=== PATIENT | male | born 1955 | race African-American/Black ===

== ENCOUNTER 2017-06-11 10:14 | Inpatient (IN) | payer OTHER ==
[2017-06-11 11:12] VITALS: BMI 30.8
--- NOTE | 2017-06-11 11:35 | HP ---
CIWA Score - CIWA Score Nausea/Vomitin-Mild Nausea/No Vomiting Muscle Tremors: 4-Moderate,w/Arms Extend Anxiety: 4-Mod. Anxious/Guarded Agitation: 0-Normal Activity Paroxysmal Sweats: 1-Minimal Palms Moist Orientation: 0-Oriented Tacttile Disturbances: 1-Very Mild Itch/Numbness Auditory Disturbances: 1-Very Mild Visual Disturbances: 0-None Headache: 2-Mild CIWA-Ar Total Score: 14 Admission ROS BHS - HPI Chief Complaint: I want to get myself together, I need help, I can't stop on my own Allergies/Adverse Reactions: Allergies Allergy/AdvReac Type Severity Reaction Status Date / Time penicillin G Allergy Unknown UNKNOWN Verified 06/11/17 13:21 History of Present Illness: 61 yo gentleman here for detox from alcohol - last here in 2016, relapsed a few months ago - [place] been [place], [place] [address] [place] [address] No seizures. Although urine tox + opiates, benzo and barbiturates - patient denies any use of these and states probably mixed with crack. Exam Limitations: Clinical Condition - Ebola screening Have you traveled outside of the country in the last 21 days: No (N) Have you had contact with anyone from an Ebola affected area: No Have you been sick,other than usual withdrawal symptoms: No Do you have a fever: No - Review of Systems Constitutional: Loss of Appetite, Changes in sleep, Weakness EENT: reports: Blurred Vision Respiratory: reports: No Symptoms reported Cardiac: reports: No Symptoms Reported GI: reports: Nausea : reports: Frequency Musculoskeletal: reports: Other (chronic left leg pain) Neuro: reports: Headache, Unsteady Gait (left leg pain - uses cane) Endocrine: reports: No Symptoms Reported Hematology: reports: No Symptoms Reported Psychiatric: reports: Judgement Intact, Mood/Affect Appropiate, Orientated x3, Anxious Other Systems: Reviewed and Negative Patient History - Patient Medical History Hx Anemia: No Hx Asthma: No Hx Chronic Obstructive Pulmonary Disease (COPD): No Hx Cancer: No Hx Cardiac Disorders: No Hx Congestive Heart Failure: No Hx Hypertension: No Hx Hypercholesterolemia: No Hx Pacemaker: No HX Cerebrovascular Accident: No Hx Seizures: No Hx Dementia: No Hx Diabetes: Yes Hx Gastrointestinal Disorders: Yes (history of gastric ulcer) Hx Liver Disease: No Hx Genitourinary Disorders: No Hx Sexually Transmitted Disorders: No Hx Renal Disease (ESRD): No Hx Thyroid Disease: No Hx Human Immunodeficiency Virus (HIV): No (negative) Hx Hepatitis C: Yes (patient states he is not sure if he has it) Hx Depression: Yes Hx Suicide Attempt: No (denies) Hx Bipolar Disorder: Yes (history of hospitalization - last time a year ago, out of meds ) Hx Schizophrenia: Yes (out of meds about a month - 'I've been on the streets') Other Medical History: nerve damage left leg ? told maybe from football injury - Patient Surgical History Past Surgical History: Yes Hx Neurologic Surgery: No Hx Cataract Extraction: No Hx Cardiac Surgery: No Hx Lung Surgery: No Hx Breast Surgery: No Hx Breast Biopsy: No Hx Abdominal Surgery: Yes (1984 gastric bleeding ulcer) Hx Appendectomy: No Hx Cholecystectomy: No Hx Genitourinary Surgery: No Hx Section: No Hx Orthopedic Surgery: No Anesthesia Reaction: No - PPD History Previous Implant?: Yes Documented Results: Negative w/proof Implanted On Prior [facility] [place]?: Yes Date: 06/01/15 PPD to be Administered?: Yes - Reproductive History Patient is a Female of Child Bearing Age (11 -55 yrs old): No (male) - Smoking Cessation Smoking history: Current every day smoker Have you smoked in the past 12 months: Yes Aproximately how many cigarettes per day: 7 Hx Chewing Tobacco Use: No Initiated information on smoking cessation: Yes 'Breaking Loose' booklet given: 06/11/17 (give on floor) - Substance & Tx. History Hx Alcohol Use: Yes Hx Substance Use: Yes Substance Use Type: Alcohol, Cocaine Hx Substance Use Treatment: Yes (detox, rehab) - Substances Abused alcohol Frequency: Daily Amount used: 1/2 pint and 3 cans beer 22 oz Age of first use: 17 Date of Last Use: 06/10/17 crack Route: Smoking Frequency: 3-6 times per week Amount used: $100 Age of first use: 34 Date of Last Use: 06/11/17 Family Disease History - Family Disease History Family Disease History: Diabetes: Mother (), Other: Father (, etoh), Mother, Brother (three - one ? unsure why), Sister (three - etoh use ) Admission Physical Exam BHS - Vital Signs Vital Signs: Vital Signs - 24 hr 06/11/17 10:53 Temperature 97.3 F L Pulse Rate 73 Respiratory 20 Rate Blood Pressure 126/87 - Physical General Appearance: Yes: Nourished, Appropriately Dressed, Moderate Distress, Obese HEENTM: Yes: Hearing grossly Normal, Normocephalic, Normal Voice, Pharynx Normal Respiratory: Yes: Normal Breath Sounds, No Respiratory Distress Neck: Yes: No masses,lesions,Nodules Breast: Yes: Breast Exam Deferred Cardiology: Yes: Regular Rhythm, Regular Rate Abdominal: Yes: Flat Genitourinary: Yes: Frequency Back: Yes: Normal Inspection Musculoskeletal: Yes: Other (left leg pain, limp (chronic)) Extremities: Yes: Normal Inspection Neurological: Yes: Fully Oriented, Alert, Normal Mood/Affect, Normal Response Integumentary: Yes: Normal Color, Warm Lymphatic: Yes: Within Normal Limits - Addiitonal Findings: [id number] - Diagnostic (1) Alcohol dependence with uncomplicated withdrawal Current Visit: Yes Status: Acute (2) Crack cocaine use Current Visit: Yes Status: Acute (3) Chronic leg pain Current Visit: Yes Status: Chronic Qualifiers: Laterality: left Qualified Code(s): M79.605 - Pain in left leg (4) Diabetes mellitus type 2, diet-controlled Current Visit: Yes Status: Chronic (5) Nicotine dependence Current Visit: Yes Status: Chronic Qualifiers: Nicotine product type: cigarettes Substance use status: uncomplicated Qualified Code(s): F17.210 - Nicotine dependence, cigarettes, uncomplicated Cleared for Admission [facility] - Detox or Rehab [facility] Level of Care: Medically Managed Detox Regimen/Protocol: Librium [facility] Breath Alcohol Content Breath Alcohol Content: 0 Urine Drug Screen - Results Drug Screen Negative: No Urine Drug Screen Results: MINNIE-Cocaine, OPI-Opiates, BAR-Barbiturates, BZO- Benzodiazepines, OXY-Oxycodone
[2017-06-11] MEDS ORDERED: hydrOXYzine PAMOATE 25 MG CAPSULE (FP) PO PRN (13:13)
[2017-06-11] MEDS ORDERED: MAGNESIUM HYDROX 2400MG/30ML ORAL SUSPENSION 30 ML CUP PO PRN (13:13)
[2017-06-11] MEDS ORDERED: MAGNESIUM CITRATE 300 ML BOTTLE PO PRN (13:13)
[2017-06-11] MEDS ORDERED: IBUPROFEN 400 MG TABLET (FP) PO PRN (13:13)
[2017-06-11] MEDS ORDERED: MAG HYDROX/AL HYDROX/SIMETH 30 ML UNIT-DOSE CUP PO PRN (13:13)
[2017-06-11] MEDS ORDERED: MENTHOL/PHENOL 1 EACH UD MM PRN (13:13)
[2017-06-11] MEDS ORDERED: LOPERAMIDE HCL 2 MG CAPSULE PO PRN (13:13)
[2017-06-11] MEDS ORDERED: ACETAMINOPHEN 325 MG TABLET (FP) PO PRN (13:13)
[2017-06-11] MEDS ORDERED: guaiFENesin/D-METHORPHAN HB 10 ML UNIT-DOSE CUPS PO PRN (13:13)
[2017-06-11] MEDS ORDERED: P-EPHED 60MG/TRIPROLIDI 2.5MG TABLET PO PRN (13:13)
[2017-06-11] MEDS ORDERED: NICOTINE POLACRILEX 2 MG GUM BUC PRN (13:13)
[2017-06-11] MEDS ORDERED: chlordiazePOXIDE HCL 25 MG CAPSULE PO PRN (13:22)
[2017-06-11] MEDS ORDERED: chlordiazePOXIDE HCL 25 MG CAPSULE PO ONE (13:30)
[2017-06-11] MEDS: NICOTINE 14 MG/24 HOURS TOPICAL PATCH TD SCH (15:48)
[2017-06-11] MEDS: chlordiazePOXIDE HCL 25 MG CAPSULE PO SCH ×2 (17:28→22:22)
[2017-06-11 19:18] LABS: URINE APPEARANCE TURBID; URINE BILIRUBIN NEGATIVE (NEGATIVE); URINE BLOOD NEGATIVE (NEGATIVE); URINE COLOR AMBER; URINE GLUCOSE (UA) NEGATIVE (NEGATIVE); URINE KETONE TRACE (NEGATIVE); URINE LEUK ESTERASE NEGATIVE (NEGATIVE); URINE NITRITE NEGATIVE (NEGATIVE); URINE PROTEIN NEGATIVE (NEGATIVE)
[2017-06-11] MEDS: THIAMINE HCL 100 MG TABLET (FP) PO SCH (22:22)
[2017-06-12] MEDS: chlordiazePOXIDE HCL 25 MG CAPSULE PO SCH ×4 (05:15→22:09)
[2017-06-12] MEDS: metFORMIN HCL 500 MG TABLET (FP) PO SCH (07:00)
--- NOTE | 2017-06-12 10:12 | CONSULT ---
Psychiatric Findings - Problem List ([place] 1, 2,3) (1) Schizoaffective disorder Current Visit: No Status: Chronic
[2017-06-12 10:14] LABS: HEMATOCRIT 38.3 % (35.4-49); HEMOGLOBIN 12.7 GM/dL (11.7-16.9); MCH 27.4 pg (25.7-33.7); MCHC 33.1 g/dl (32.0-35.9); MEAN CELL VOLUME 82.8 fl (80-96); MEAN PLT VOLUME 8.5 fl (7.5-11.1); PLATELET COUNT 211 K/MM3 (134-434); RBC 4.62 M/mm3 (4.00-5.60); RDW 15.9 % (11.9-15.9); WHITE BLOOD COUNT 5.4 K/mm3 (4.0-10.0)
[2017-06-12 10:18] LABS: CHLORIDE 107 mmol/L (98-107); SODIUM 141 mmol/L (136-145)
[2017-06-12 10:32] LABS: ALBUMIN 3.3 g/dl (3.4-5.0); ALK PHOS 64 U/L (45-117); ANION GAP 5 (8-16); BILIRUBIN,TOTAL 0.3 mg/dL (0.2-1.0); BLOOD UREA NITROGEN 9 mg/dL (7-18); CALCIUM 8.1 mg/dL (8.5-10.1); CO2 29 mmol/L (21-32); GLUCOSE,RANDOM 96 mg/dL (74-106); SGOT/AST 24 U/L (15-37); SGPT/ALT 16 U/L (12-78); TOT PROT 6.2 g/dl (6.4-8.2)
[2017-06-12] MEDS: PRENATAL VITAMINS W/ FOLIC ACID TABLET (FP) PO SCH (10:32)
[2017-06-12] MEDS: NICOTINE 14 MG/24 HOURS TOPICAL PATCH TD SCH (10:33)
--- NOTE | 2017-06-12 12:11 | PN ---
[facility] Progress Note Note: Patient was approached twice at bedside for interview. The first time, he told automobile service writer that he needed some rest and a verbal agreement to talk after lunch was reached. He was approached a second time after he ate his lunch and he wanted automobile service writer to talk to him at bedside. Since his roommate was in bed sleeping, he was asked to come to the office instead. He became irritable, hostile and refused to be interviewed saying:"I don't want to talk to you"
--- NOTE | 2017-06-12 12:39 | PN ---
[facility] CIWA - CIWA Score Nausea/Vomitin-Mild Nausea/No Vomiting Muscle Tremors: 4-Moderate,w/Arms Extend Anxiety: 4-Mod. Anxious/Guarded Agitation: 3 Paroxysmal Sweats: 1-Minimal Palms Moist Orientation: 0-Oriented Tacttile Disturbances: 0-None Auditory Disturbances: 0-None Visual Disturbances: 0-None Headache: 0-None Present CIWA-Ar Total Score: 13 BHS Progress Note (SOAP) Subjective: gi upset sweat tremor restlessness irritable anxiety Objective: 06/12/17 12:38 Vital Signs Temperature 97.9 F 06/12/17 10:00 Pulse Rate 76 06/12/17 10:00 Respiratory Rate 20 06/12/17 10:00 Blood Pressure 113/68 06/12/17 10:00 O2 Sat by Pulse Oximetry (%) Laboratory Last Values WBC 5.4 K/mm3 (4.0-10.0) 06/12/17 07:20 RBC 4.62 M/mm3 (4.00-5.60) 06/12/17 07:20 Hgb 12.7 GM/dL (11.7-16.9) 06/12/17 07:20 Hct 38.3 % (35.4-49) 06/12/17 07:20 MCV 82.8 fl (80-96) 06/12/17 07:20 MCH 27.4 pg (25.7-33.7) 06/12/17 07:20 MCHC 33.1 g/dl (32.0-35.9) 06/12/17 07:20 RDW 15.9 % (11.9-15.9) 06/12/17 07:20 Plt Count 211 K/MM3 (134-434) 06/12/17 07:20 MPV 8.5 fl (7.5-11.1) 06/12/17 07:20 Sodium 141 mmol/L (136-145) 06/12/17 07:20 Potassium 4.0 mmol/L (3.5-5.1) 06/12/17 07:20 Chloride 107 mmol/L (98-107) 06/12/17 07:20 Carbon Dioxide 29 mmol/L (21-32) 06/12/17 07:20 Anion Gap 5 (8-16) L 06/12/17 07:20 BUN 9 mg/dL (7-18) D 06/12/17 07:20 Creatinine 1.0 mg/dL (0.7-1.3) D 06/12/17 07:20 Creat Clearance w eGFR > 60 (>60) 06/12/17 07:20 POC Glucometer 102 UNITS (80-120) 06/12/17 05:14 Random Glucose 96 mg/dL (74-106) 06/12/17 07:20 Calcium 8.1 mg/dL (8.5-10.1) L 06/12/17 07:20 Total Bilirubin 0.3 mg/dL (0.2-1.0) D 06/12/17 07:20 AST 24 U/L (15-37) 06/12/17 07:20 ALT 16 U/L (12-78) D 06/12/17 07:20 Alkaline Phosphatase 64 U/L (45-117) 06/12/17 07:20 Total Protein 6.2 g/dl (6.4-8.2) L 06/12/17 07:20 Albumin 3.3 g/dl (3.4-5.0) L 06/12/17 07:20 Urine Color Renae 06/11/17 15:43 Urine Appearance Turbid 06/11/17 15:43 Urine pH 5.0 (5.0-8.0) 06/11/17 15:43 Ur Specific [place] 1.026 (1.001-1.035) 06/11/17 15:43 Urine Protein Negative (NEGATIVE) 06/11/17 15:43 Urine Glucose (UA) Negative (NEGATIVE) 06/11/17 15:43 Urine Ketones Trace (NEGATIVE) H 06/11/17 15:43 Urine Blood Negative (NEGATIVE) 06/11/17 15:43 Urine Nitrite Negative (NEGATIVE) 06/11/17 15:43 Urine Bilirubin Negative (NEGATIVE) 06/11/17 15:43 Urine Urobilinogen 2.0 mg/dL (0.2-1.0) 06/11/17 15:43 Ur Leukocyte Esterase Negative (NEGATIVE) 06/11/17 15:43 RPR Titer Nonreactive (NONREACTIVE) 06/12/17 07:20 HIV 1&2 Antibody Screen Negative 06/12/17 07:20 HIV P24 Antigen Negative 06/12/17 07:20 lab noted Assessment: 06/12/17 12:39 withdrawal sx Plan: continue detox
--- NOTE | 2017-06-12 20:36 | EKG ---
Test Reason : Blood Pressure : / mmHG Vent. Rate : 073 BPM Atrial Rate : 073 BPM P-R Int : 152 ms QRS Dur : 110 ms QT Int : 400 ms P-R-T Axes : 067 -26 042 degrees QTc Int : 440 ms NORMAL SINUS RHYTHM NORMAL ECG NO PREVIOUS ECGS AVAILABLE Confirmed by NICOLAS KUO MD ([id number]) on 06/12/2017 8:35:54 PM Referred By: Confirmed By:NICOLAS KUO MD
[2017-06-12] MEDS: THIAMINE HCL 100 MG TABLET (FP) PO SCH (22:09)
[2017-06-13] MEDS: chlordiazePOXIDE HCL 25 MG CAPSULE PO SCH ×2 (05:14→10:21)
[2017-06-13] MEDS: metFORMIN HCL 500 MG TABLET (FP) PO SCH (07:44)
[2017-06-13] MEDS: PRENATAL VITAMINS W/ FOLIC ACID TABLET (FP) PO SCH (10:21)
[2017-06-13] MEDS: NICOTINE 14 MG/24 HOURS TOPICAL PATCH TD SCH (10:21)
--- NOTE | 2017-06-13 10:59 | PN ---
S CIWA - CIWA Score Nausea/Vomitin Muscle Tremors: 3 Anxiety: 3 Agitation: 2 Paroxysmal Sweats: 1-Minimal Palms Moist Orientation: 0-Oriented Tacttile Disturbances: 1-Very Mild Itch/Numbness Auditory Disturbances: 1-Very Mild Visual Disturbances: 0-None Headache: 2-Mild CIWA-Ar Total Score: 16 BHS Progress Note (SOAP) Subjective: ALERT,IRRITABLE,ANXIOUS,INTERRUPTED SLEEP,TREMOR Objective: 06/13/17 10:57 Vital Signs Temperature 98.1 F 06/13/17 10:28 Pulse Rate 69 06/13/17 10:28 Respiratory Rate 2 L 06/13/17 10:28 Blood Pressure 112/76 06/13/17 10:28 O2 Sat by Pulse Oximetry (%) Laboratory Last Values WBC 5.4 K/mm3 (4.0-10.0) 06/12/17 07:20 RBC 4.62 M/mm3 (4.00-5.60) 06/12/17 07:20 Hgb 12.7 GM/dL (11.7-16.9) 06/12/17 07:20 Hct 38.3 % (35.4-49) 06/12/17 07:20 MCV 82.8 fl (80-96) 06/12/17 07:20 MCH 27.4 pg (25.7-33.7) 06/12/17 07:20 MCHC 33.1 g/dl (32.0-35.9) 06/12/17 07:20 RDW 15.9 % (11.9-15.9) 06/12/17 07:20 Plt Count 211 K/MM3 (134-434) 06/12/17 07:20 MPV 8.5 fl (7.5-11.1) 06/12/17 07:20 Sodium 141 mmol/L (136-145) 06/12/17 07:20 Potassium 4.0 mmol/L (3.5-5.1) 06/12/17 07:20 Chloride 107 mmol/L (98-107) 06/12/17 07:20 Carbon Dioxide 29 mmol/L (21-32) 06/12/17 07:20 Anion Gap 5 (8-16) L 06/12/17 07:20 BUN 9 mg/dL (7-18) D 06/12/17 07:20 Creatinine 1.0 mg/dL (0.7-1.3) D 06/12/17 07:20 Creat Clearance w eGFR > 60 (>60) 06/12/17 07:20 POC Glucometer 100 UNITS (80-120) 06/13/17 06:36 Random Glucose 96 mg/dL (74-106) 06/12/17 07:20 Calcium 8.1 mg/dL (8.5-10.1) L 06/12/17 07:20 Total Bilirubin 0.3 mg/dL (0.2-1.0) D 06/12/17 07:20 AST 24 U/L (15-37) 06/12/17 07:20 ALT 16 U/L (12-78) D 06/12/17 07:20 Alkaline Phosphatase 64 U/L (45-117) 06/12/17 07:20 Total Protein 6.2 g/dl (6.4-8.2) L 06/12/17 07:20 Albumin 3.3 g/dl (3.4-5.0) L 06/12/17 07:20 Urine Color Renae 06/11/17 15:43 Urine Appearance Turbid 06/11/17 15:43 Urine pH 5.0 (5.0-8.0) 06/11/17 15:43 Ur Specific [place] 1.026 (1.001-1.035) 06/11/17 15:43 Urine Protein Negative (NEGATIVE) 06/11/17 15:43 Urine Glucose (UA) Negative (NEGATIVE) 06/11/17 15:43 Urine Ketones Trace (NEGATIVE) H 06/11/17 15:43 Urine Blood Negative (NEGATIVE) 06/11/17 15:43 Urine Nitrite Negative (NEGATIVE) 06/11/17 15:43 Urine Bilirubin Negative (NEGATIVE) 06/11/17 15:43 Urine Urobilinogen 2.0 mg/dL (0.2-1.0) 06/11/17 15:43 Ur Leukocyte Esterase Negative (NEGATIVE) 06/11/17 15:43 RPR Titer Nonreactive (NONREACTIVE) 06/12/17 07:20 HIV 1&2 Antibody Screen Negative 06/12/17 07:20 HIV P24 Antigen Negative 06/12/17 07:20 Assessment: 06/13/17 10:58 WITHDRAWAL SYMPTOM Plan: CONTINUE DETOX
--- NOTE | 2017-06-13 16:08 | CONSULT ---
[facility] Psychiatric Consult - Data Date of interview: 06/13/17 Admission source: [facility] Identifying data: This is 61 years old AA male, ambulating with cane, with history of Schizophrenia, here for detox from alcohol, Crack and Nicotine, reports psychiatric hospitalization history, Substance Abuse History: Urine Drug Screen Results: MINNIE-Cocaine, OPI-Opiates, BAR-Barbiturates, BZO-Benzodiazepines, OXY-Oxycodone. Smoking Cessation. Smoking history: Current every day smoker. Have you smoked in the past 12 months: Yes. Aproximately how many cigarettes per day: 7. Hx Chewing Tobacco Use: No. Initiated information on smoking cessation: Yes. 'Breaking Loose' booklet given: 06/11/17 (give on floor). - Substance & Tx. History. Hx Alcohol Use: Yes. Hx Substance Use: Yes. Substance Use Type: Alcohol, Cocaine. Hx Substance Use Treatment: Yes (detox, rehab). - Substances Abused. alcohol. Frequency: Daily. Amount used: 1/2 pint and 3 cans beer 22 oz. Age of first use: 17. Date of Last Use: 06/10/17. crack. Route: Smoking. Frequency: 3-6 times per week. Amount used: $100. Age of first use: 34. Date of Last Use: 06/11/17 Medical History: DM-2, Lower extremity injury history Psychiatric History: Patient reports history of Schizophrenia with most recent psychiatrtic admission on about more then 10 years ago, reports to be sable on: Haldol 5mg po bid. Cogention 1mg po bid. Zoloft 50mg poqd. Denies suicidal history Physical/Sexual Abuse/Trauma History: Denies Additional Comment: Urine Drug Screen Results: MINNIE-Cocaine, OPI-Opiates, BAR- Barbiturates, BZO-Benzodiazepines, OXY-Oxycodone. Haldol 5mg po bid. Cogention 1mg po bid. Zoloft 50mg poqd Mental Status Exam - Mental Status Exam Alert and Oriented to: Person Cognitive Function: Fair Patient Appearance: Well Groomed Mood: Apprehensive Affect: Mood Congruent Patient Behavior: Cooperative Speech Pattern: Appropriate Voice Loudness: Normal Thought Process: Goal Oriented Thought Disorder: Being Controlled Hallucinations: Denies Suicidal Ideation: Denies Homicidal Ideation: Denies Insight/Judgement: Fair Sleep: Difficulty falling asleep Appetite: Weight gain Muscle strength/Tone: Mild Hypotonicity Gait/Station: Deferred Additional Comments: Haldol 5mg po bid. Cogention 1mg po bid. Zoloft 50mg poqd Psychiatric Findings - Problem List ([place] 1, 2,3) (1) Schizophrenia, residual type Current Visit: Yes Status: Chronic (2) Alcohol dependence with uncomplicated withdrawal Current Visit: Yes Status: Acute (3) Crack cocaine use Current Visit: Yes Status: Acute (4) Nicotine dependence Current Visit: Yes Status: Chronic Qualifiers: Nicotine product type: cigarettes Substance use status: uncomplicated Qualified Code(s): F17.210 - Nicotine dependence, cigarettes, uncomplicated (5) Schizoaffective disorder Current Visit: No Status: Suspected - Initial Treatment Plan Initial Treatment Plan: Haldol 5mg po bid. Cogention 1mg po bid. Zoloft 50mg poqd
[2017-06-13] MEDS: chlordiazePOXIDE 5 MG CAPSULE PO SCH ×2 (17:28→22:26)
[2017-06-13] MEDS: THIAMINE HCL 100 MG TABLET (FP) PO SCH (22:26)
[2017-06-13] MEDS: BENZTROPINE MESYLATE 1 MG TABLET (FP) PO SCH (22:27)
[2017-06-13] MEDS: HALOPERIDOL 5 MG TABLET (FP) PO SCH (22:27)
[2017-06-14] MEDS: chlordiazePOXIDE 5 MG CAPSULE PO SCH ×2 (06:06→10:40)
[2017-06-14] MEDS: metFORMIN HCL 500 MG TABLET (FP) PO SCH (06:06)
--- NOTE | 2017-06-14 10:19 | PN ---
S Progress Note (SOAP) Subjective: ALERT,IRRITABLE,INTERRUPTED SLEEP Objective: 06/14/17 10:18 Vital Signs Temperature 98.1 F 06/14/17 09:56 Pulse Rate 69 06/14/17 09:56 Respiratory Rate 20 06/14/17 09:56 Blood Pressure 112/54 06/14/17 09:56 O2 Sat by Pulse Oximetry (%) Assessment: 06/14/17 10:18 WITHDRAWAL SYMPTOM Plan: CONTINUE DETOX,DISCHARGE IN AM
[2017-06-14] MEDS: PRENATAL VITAMINS W/ FOLIC ACID TABLET (FP) PO SCH (10:38)
[2017-06-14] MEDS: HALOPERIDOL 5 MG TABLET (FP) PO SCH ×2 (10:39→22:08)
[2017-06-14] MEDS: SERTRALINE HCL 50 MG TABLET (FP) PO SCH (10:39)
[2017-06-14] MEDS: BENZTROPINE MESYLATE 1 MG TABLET (FP) PO SCH ×2 (10:39→22:08)
[2017-06-14] MEDS: NICOTINE 14 MG/24 HOURS TOPICAL PATCH TD SCH (10:40)
[2017-06-14] MEDS: chlordiazePOXIDE HCL 10 MG CAPSULE PO SCH ×2 (17:22→22:08)
[2017-06-14] MEDS: THIAMINE HCL 100 MG TABLET (FP) PO SCH (22:08)
[2017-06-15] MEDS: chlordiazePOXIDE HCL 10 MG CAPSULE PO SCH (05:29)
--- NOTE | 2017-06-15 08:28 | PN ---
S Progress Note (SOAP) Subjective: ALERT,NO COMPLAINT Objective: 06/15/17 08:27 Vital Signs Temperature 97.7 F 06/15/17 06:16 Pulse Rate 73 06/15/17 06:16 Respiratory Rate 18 06/15/17 06:16 Blood Pressure 123/83 06/15/17 06:16 O2 Sat by Pulse Oximetry (%) Assessment: 06/15/17 08:27 DETOX COMPLETED NO WITHDRAWAL SYMPTOM Plan: DISCHARGE TODAY,FOLLOW UP WITH AFTER CARE PROGRAM ARRANGEMENT
--- NOTE | 2017-06-15 08:37 | DS ---
[facility] Detox Discharge Summary Admission Date: 06/11/17 Discharge Date: 06/15/17 - History Present History: Alcohol Dependence, Cocaine Dependence Additional Comments: FOLLOW UP WITH AFTER CARE PROGRAM ARRANGEMENT Pertinent Past History: TYPE 2 DIABETES MELLITUS NICOTINE DEPENDENCE HEPATITIS C SCHIZOAFFECTIVE DISORDER SCHIZOPHRENIA RESIDUAL TYPE - Physical Exam Results Vital Signs: Vital Signs Temperature 97.7 F 06/15/17 06:16 Pulse Rate 73 06/15/17 06:16 Respiratory Rate 18 06/15/17 06:16 Blood Pressure 123/83 06/15/17 06:16 O2 Sat by Pulse Oximetry (%) Pertinent Admission Physical Exam Findings: WITHDRAWAL SIGNS AND SYMPTOM - Treatment Hospital Course: Detox Protocol Followed, Detoxed Safely, Responded well, Discharged Condition Good Patient has Accepted a Rehab Referral to: DECLINED - Medication Discharge Medications: Ambulatory Orders Ibuprofen [Motrin -] 600 mg PO TID PRN 05/30/15 metFORMIN HCL [Glucophage -] 500 mg PO DAILY 06/11/17 Benztropine Mesylate [Cogentin -] 1 mg PO BID #60 tablet 06/13/17 Haloperidol [Haldol -] 5 mg PO BID #60 tablet 06/13/17 Sertraline HCl [Zoloft -] 50 mg PO DAILY #30 tablet 06/13/17 - Diagnosis (1) Alcohol dependence with uncomplicated withdrawal Current Visit: Yes Status: Acute (2) Crack cocaine use Current Visit: Yes Status: Acute (3) Diabetes mellitus type 2, diet-controlled Current Visit: Yes Status: Chronic (4) Nicotine dependence Current Visit: Yes Status: Chronic Qualifiers: Nicotine product type: cigarettes Substance use status: uncomplicated Qualified Code(s): F17.210 - Nicotine dependence, cigarettes, uncomplicated (5) Hepatitis C Current Visit: No Status: Chronic Qualifiers: Viral hepatitis chronicity: chronic Hepatic coma status: without hepatic coma Qualified Code(s): B18.2 - Chronic viral hepatitis C (6) Schizophrenia, residual type Current Visit: Yes Status: Chronic (7) Schizoaffective disorder Current Visit: No Status: Suspected - AMA Did Patient Leave Against Medical Advice: No
[2017-06-15] MEDS: metFORMIN HCL 500 MG TABLET (FP) PO SCH (08:42)
[2017-06-15] MEDS: SERTRALINE HCL 50 MG TABLET (FP) PO SCH (10:08)
[2017-06-15] MEDS: HALOPERIDOL 5 MG TABLET (FP) PO SCH (10:08)
[2017-06-15] MEDS: BENZTROPINE MESYLATE 1 MG TABLET (FP) PO SCH (10:09)
[2017-06-15] MEDS: PRENATAL VITAMINS W/ FOLIC ACID TABLET (FP) PO SCH (10:09)
[2017-06-15 10:34] VITALS: BP 145/68; PULSE 86; TEMP 96.8
== END 2017-06-15 10:00 | disposition home or self-care (01) | DRG 774 ==
LOC: YASAS 10:14 → Y6N 13:20
PROVIDERS: ADMIT Internal Medicine; ATTEND Internal Medicine
PROC: HZ2ZZZZ Detoxification Services for Substance Abuse Treatment (ICD-10-PCS; principal; 2017-06-11)
DX: F10.230 Alcohol dependence with withdrawal, uncomplicated (principal); F14.90 Cocaine use, unspecified, uncomplicated; F17.210 Nicotine dependence, cigarettes, uncomplicated; F25.9 Schizoaffective disorder, unspecified; F20.5 Residual schizophrenia; B18.2 Chronic viral hepatitis C; M79.605 Pain in left leg; G89.29 Other chronic pain; E11.9 Type 2 diabetes mellitus without complications; E66.9 Obesity, unspecified; Z68.30 Body mass index [BMI] 30.0-30.9, adult; Z88.0 Allergy status to penicillin
CPT/HCPCS: 36415; 80053; 81003; 82962; 85027; 86593; 87389; 93005; 93010